=== PATIENT | female | born 1945 | race Caucasian/White ===

== ENCOUNTER 2020-08-13 08:21 | Outpatient (CLI) | payer MEDICARE, OTHER ==
[2020-08-13 15:06] LABS: Hemoglobin 14.7 g/dL (12.0-16.0)
[2020-08-13 15:14] LABS: Anion Gap 12 mmol/L (10-20); BUN (Urea Nitrogen) 14 mg/dL (9.8-20.1); Calc. Creatinine Clearance 0 mL/min (70-130); Calcium 11.3 mg/dL (7.8-10.44); Carbon Dioxide 26 mmol/L (23-31); Chloride 107 mmol/L (98-107); Glucose 86 mg/dL (83-110); Potassium 4.1 mmol/L (3.5-5.1); Sodium 141 mmol/L (136-145)
[2020-08-14 02:11] LABS: SARS-CoV-2 MS2 Positive; SARS-CoV-2 N Gene Negative; SARS-CoV-2 S Gene Negative; SARS-CoV-2 by NAA Not Detected (NotDetected); SARS-CoV-2 orf1ab Negative
== END 2020-08-13 08:22 | disposition home or self-care (01) ==
LOC: LABBT 08:21
PROVIDERS: ATTEND Student in an Organized Health Care Education/Training Program
DX: Z01.818 Encounter for other preprocedural examination (principal); Z20.828 Contact with and (suspected) exposure to other viral communicable diseases; D35.1 Benign neoplasm of parathyroid gland; E21.3 Hyperparathyroidism, unspecified
CPT/HCPCS: 80048; 85014; 85018; 93005; U0003; 87635; 93010

== ENCOUNTER 2020-08-18 06:29 | Observation (INO) | payer MEDICARE, OTHER ==
[2020-08-18] MEDS ORDERED: Scopolamine 1.5 mg/72 hour Patch ONE (08:05)
[2020-08-18] MEDS ORDERED: Lidocaine 1% w/Epinephrine 1:100K 20 ML VIAL ONE (08:46)
[2020-08-18] MEDS ORDERED: Midazolam HCl 2 mg/2 ml Vial ONE (08:55)
[2020-08-18] MEDS ORDERED: Fentanyl 250 MCG/5 ML VIAL ONE (08:55)
[2020-08-18] MEDS ORDERED: ePHEDrine 50 MG/ML VIAL ONE (10:41)
[2020-08-18] MEDS ORDERED: PROPOFOL 200 MG/20 ML VIAL ONE (10:41)
[2020-08-18] MEDS ORDERED: PHENYLEPHRINE-NS 100 MCG/ML 10 ML SYRINGE ONE (10:41)
[2020-08-18] MEDS ORDERED: Lidocaine 1% PF 5 ML VIAL ONE (10:41)
[2020-08-18] MEDS ORDERED: Rocuronium Bromide 10 MG/ML (10ML VIAL) ONE (10:41)
[2020-08-18] MEDS ORDERED: Ondansetron PF 4 MG/2 ML Vial ONE (11:58)
[2020-08-18] MEDS ORDERED: Promethazine HCl 25 MG SUPP PR PRN (12:04)
[2020-08-18] MEDS ORDERED: Ondansetron PF 4 MG/2 ML Vial IVP PRN (12:04)
[2020-08-18] MEDS ORDERED: HYDROcodone/Acetaminophen 5/325 mg Tablet PO PRN (12:04)
[2020-08-18] MEDS ORDERED: Fentanyl 100 MCG/2 ML VIAL ONE (12:07)
[2020-08-18] MEDS ORDERED: Promethazine HCl 25 MG/ML VIAL ONE (12:55)
[2020-08-18] MEDS: Lactated Ringer's 1,000 ML IV SCH ×2 (15:06→18:09)
[2020-08-18 16:01] VITALS: BMI 32.0
[2020-08-18] MEDS: Famotidine 20 MG TAB PO SCH (20:42)
[2020-08-18] MEDS: Calcium Carbonate 500 MG ChewTAB PO SCH (20:45)
[2020-08-18] MEDS ORDERED: Calcitriol 0.25 MCG CAP PO SCH (21:00)
--- NOTE | 2020-08-19 07:35 | OP ---
DATE OF PROCEDURE: 08/18/2020 PREOPERATIVE DIAGNOSES: Hyperparathyroidism, hypercalcemia, and parathyroid adenoma. POSTOPERATIVE DIAGNOSES: Hyperparathyroidism, hypercalcemia, and parathyroid adenoma. PROCEDURES PERFORMED: Exploration of parathyroid glands and parathyroidectomy. PERMIT: Procedures, benefits, risks including those of bleeding, infection, injury from anesthesia, allergic reaction, damage to recurrent laryngeal nerve, hypocalcemia and recurrence or surgery necessitating revision and repair and alternatives were reviewed with the patient and family, who expressed understanding of the information. The consent form was signed and witnessed and a paper copy of the consent form is available for review in the paper chart. INDICATIONS: This is a 75-year-old female patient presenting to the clinic with hypercalcemia, hyperparathyroidism, and a localizing nuclear medicine scan showing increased uptake in the left inferior thyroid pole consistent with a parathyroid adenoma of significant size. Given the patient's age and hypercalcemia and elevated parathyroid hormone and risk for bone density issues, the patient was given the option for surgical excision and the patient decided to undergo operative treatment. ASSISTANTS: None. FINDINGS: Large left parathyroid adenoma. DESCRIPTION OF OPERATION: The patient was brought to the operating room and laid supine on the operating room table. General endotracheal anesthesia was administered. A shoulder roll was placed and the patient was prepped and draped in a sterile fashion, taking care that the head was comfortably resting on a foam pad. The airway landmarks were identified and marked with a marking pen and an anterior neck incision and a natural skin crease was made over the inferior aspect of the thyroid gland was palpated and an incision was made after injecting with 1% Xylocaine and 1:100,000 epinephrine. Roughly 6 mL. An incision was made with a 15 blade scalpel through the dermis down to subcutaneous tissue. At this point, hemostasis was achieved with Bovie cautery and Bovie on a setting of 15 was used to incise the subcutaneous tissue through the platysmal muscle, which was minimal down to the strap muscles. The strap muscles were identified with blunt dissection and the sternohyoid muscle and sternothyroid muscle were identified. The sternocleidomastoid was identified. Blunt dissection was used to separate the anterior strap muscles from the sternocleidomastoid. After the sternohyoid and sternothyroid were elevated from the underlying tissues, an Army-Drake retractor was used to retract the musculature and the left inferior thyroid lobe was immediately identified and fascial dissection was used to expose the thyroid gland and retract the gland medially. As the gland was retracted, blunt dissection was used to identify the mass on the inferior posterior aspect of the thyroid lobe, which appeared to be a parathyroid adenoma with a small amount of surrounding heralding fat. The mass was gently dissected free of the surrounding tissue and any blood vessels were suture ligated with silk suture. The mass was removed and was significantly large and was sent for frozen section. The patient had a previous baseline PTH taken as well as manipulation PTH, and after 15 minutes, after the parathyroid gland was removed, a post excision blood draw was sent as well. After the parathyroid gland was removed and sent for frozen section, the wound was carefully irrigated and suctioned and a Valsalva maneuver was performed multiple times to ensure that there was no bleeding and that the surrounding structures showed no damage. After this was performed, the pathologist returned to identify the mass was indeed consistent with a parathyroid adenoma that was weighing roughly 2 g. The blood draws identified a parathyroid baseline that was above 300 as well as the manipulation that was above 300 and the post excision parathyroid hormone level came back at roughly 62 and given that there was a significant greater than 50% drop after a time between 10 to 15 minutes post excision, the surgery was then considered complete and the wound was closed. A small postage stamp size Surgicel was placed in the wound bed. The strap muscles were then approximated in the midline and with one single 4-0 Vicryl stitch. Next, the wound was closed in layers with 4-0 Vicryl suture and with a buried subcutaneous stitch and then a 4-0 Prolene was then run subcuticular closure and the ends were not tied, however, there were Steri-Strips placed and the ends were Steri- Stripped over the wound to hold them in place. The wound was adequately closed and the patient was turned over for anesthesia for emergence and the patient was taken to the PACU for care and then admitted for observation and monitoring. There were no complications. Job ID: [id number] [facility]
[2020-08-19 08:14] VITALS: TEMP 98
[2020-08-19] MEDS: Famotidine 20 MG TAB PO SCH (09:56)
[2020-08-19] MEDS: Calcium Carbonate 500 MG ChewTAB PO SCH ×2 (09:56→10:00)
[2020-08-19 11:16] VITALS: BP 101/65
--- NOTE | 2020-08-20 11:41 | DIS ---
DATE OF ADMISSION: 08/18/2020 DATE OF DISCHARGE: 08/19/2020 CHIEF COMPLAINT: Hyperparathyroidism, hypercalcemia. ADMISSION DIAGNOSES: Hypercalcemia, hyperparathyroidism. PROCEDURE: Left parathyroidectomy. Admission for observation. HOSPITAL COURSE: A 75-year-old female patient, presenting to the clinic with hypercalcemia and hyperparathyroidism, which was addressed surgically in the operating room with removal of the left parathyroid adenoma and admission for calcium and PTH monitoring. Postoperatively, the patient's calcium was stable. However, the PTH trended down as it was expected, and the patient was observed on the floor with active vitamin D as well as calcium p.o. and pain management. The patient tolerated the recovery time well with ambulating, tolerating p.o., and pain in control, and calcium stable, and was discharged home with followup in the clinic and with future calcium and PTH labs ordered. Hospital stay complications, none. Job ID: [id number]
== END 2020-08-19 11:23 | disposition home or self-care (01) ==
LOC: SDC 06:29 → SURG A 13:59
PROVIDERS: ADMIT Student in an Organized Health Care Education/Training Program; ATTEND Student in an Organized Health Care Education/Training Program
PROC: 0GBP0ZZ Excision of Left Inferior Parathyroid Gland, Open Approach (ICD-10-PCS; principal; 2020-08-18)
DX: D35.1 Benign neoplasm of parathyroid gland (principal); E21.3 Hyperparathyroidism, unspecified; I10 Essential (primary) hypertension; E78.5 Hyperlipidemia, unspecified; K21.9 Gastro-esophageal reflux disease without esophagitis; M19.049 Primary osteoarthritis, unspecified hand; Z87.891 Personal history of nicotine dependence; Z79.82 Long term (current) use of aspirin; Z79.899 Other long term (current) drug therapy; Z88.0 Allergy status to penicillin; Z88.1 Allergy status to other antibiotic agents; Z88.5 Allergy status to narcotic agent
CPT/HCPCS: 60500; 82310; 83970 ×2; 88305; 88331; G0378 ×2; 36415; J0690; J2250; J2405; J2550; J2704; J3010; J3490

== ENCOUNTER 2020-09-10 09:05 | Outpatient (CLI) | payer MEDICARE, OTHER ==
[~2020-09-10 09:05] MED LIST: Ondansetron HCl/PF 4 MG/2 ML Vial IVP PRN; Promethazine HCl 25 MG/ML VIAL IM PRN; Promethazine HCl 25 MG/ML VIAL SLOW IVP PRN
== END 2020-09-10 09:06 | disposition home or self-care (01) ==
LOC: BICMAMMO 09:05
PROVIDERS: ATTEND Internal Medicine
DX: Z13.820 Encounter for screening for osteoporosis (principal); M85.852 Other specified disorders of bone density and structure, left thigh; Z78.0 Asymptomatic menopausal state
CPT/HCPCS: 77080